=== PATIENT | male | born 1990 | race Two or more races ===

== ENCOUNTER 2022-04-03 22:33 | Outpatient (CLI) | payer OTHER ==
[~2022-04-03 22:33] MED LIST: NASONEX17 GM NS
== END 2022-04-03 23:00 | disposition home or self-care (01) ==
LOC: LAB 22:33
PROVIDERS: ATTEND Obstetrics & Gynecology
DX: Z20.828 Contact with and (suspected) exposure to other viral communicable diseases (principal); Z20.818 Contact with and (suspected) exposure to other bacterial communicable diseases

== ENCOUNTER 2022-08-15 10:31 | Outpatient (CLI) | payer OTHER | END 2022-08-15 10:45 | disposition home or self-care (01) | LOC: RAD 10:31 | PROVIDERS: ATTEND General Practice | DX: R10.9 Unspecified abdominal pain (principal); N20.0 Calculus of kidney ==